=== PATIENT | female | born 1930 | race Caucasian/White ===

== ENCOUNTER 2016-07-10 10:49 | Observation (INO) | payer MEDICARE, OTHER ==
--- NOTE | ~2016-07-10 | HP ---
History And Physical [id number] [place]. [address] NAME: HALLE DE LA ROSA : 34 STATUS : ADM IN [facility]#: [id number] AGE: 85 ADM/REG DATE : 07/10/16 MR#: [id number] REPORT SERV DATE: 07/10/16 DICTATED BY: GALILEO JAVIER DATE: 07/10/16 REPORT STATUS : Draft TRANSCRIBED BY: MODRussell DATE: 07/10/16 DATE OF ADMISSION: 07/10/2016 HISTORY OF PRESENT ILLNESS: Ms. De La Rosa is an 85-year-old woman with a longstanding history of coronary artery disease. She underwent cardiac catheterization in 2014, which demonstrated normal left ventricular ejection fraction. She had proximal LAD and diagonal stenosis, for which medical management was recommended. She has a history of atrial fibrillation and sick sinus syndrome, status post pacemaker at [place]. She is normally on Pradaxa for stroke prevention. She had an episode today of feeling weak, somewhat presyncopal. She felt her heart beating a bit funny and had some precordial chest discomfort. She called 911, was brought to the [facility] Emergency Room by ambulance. She was noted to be in atrial fibrillation with mildly rapid ventricular rate. Initial troponin enzyme mildly elevated. The patient currently is on an IV amiodarone drip. She had some nonsustained ventricular tachycardia which has resolved. She is overall feeling better. PAST MEDICAL HISTORY: 1. Hypertension. 2. Hypercholesterolemia. 3. Sick sinus syndrome/atrial fibrillation, status post pacemaker. 4. Coronary artery disease. Diagonal and LAD stenosis treated medically. 5. Gastroesophageal reflux disease. ALLERGIES: INCLUDE PLAQUENIL AND SEPTRA. MEDICATIONS AT HOME: Include: Aspirin 81 mg daily, Pradaxa 75 mg twice a day, Lipitor 20 mg daily, Lasix 40 mg daily, Imdur 30 mg daily, Cozaar 25 mg daily, melatonin, metoprolol 100 mg twice a day, multivitamin, nitroglycerin sublingual, omega-3 fatty acid, and Prilosec. SOCIAL HISTORY: She does not smoke or drink alcohol. FAMILY HISTORY: There is no family history of early coronary artery disease. PHYSICAL EXAMINATION: VITAL SIGNS: Blood pressure 100/73; heart rate initially 140, now down to 70; respiratory rate of 16. GENERAL: Comfortable, in no acute distress. HEENT: Anicteric. No xanthelasma. Lips without cyanosis. NECK: No JVD. Carotids 2+ and symmetric. No carotid bruits. LUNGS: CTA bilaterally. No wheezes or rhonchi. No accessory muscle use. COR: Slightly irregular. Normal S1 and S2. No murmurs, rubs or gallops. ABD: Soft, nontender, nondistended. Normal bowel sounds. No abdominal bruits. EXT: No clubbing, cyanosis or edema 2+, and symmetric distal pulses. SKIN: Warm. Dry. No venous stasis changes. MS: No kyphosis. History And Physical [address] [place]. [address] NAME: HALLE DE LA ROSA : 34 STATUS : ADM IN [facility]#: [id number] AGE: 85 ADM/REG DATE : 07/10/16 MR#: [id number] REPORT SERV DATE: 07/10/16 DICTATED BY: GALILEO JAVIER DATE: 07/10/16 REPORT STATUS : Draft TRANSCRIBED BY: JUDITH DATE: 07/10/16 NEURO/PSYCH: Oriented x3. No anxiety or depression. LABORATORY STUDIES: White count of 12.3, hematocrit of 35. Creatinine of 1.1, potassium of 3.8. Troponin of 0.17. INR of 1.4. Chest x-ray: Chest x-ray shows moderate left pleural effusion with some consolidation. IMPRESSION: This is an 85-year-old woman presenting with symptoms of chest pain and atrial fibrillation with rapid ventricular rate. I have recommended IV amiodarone. We will plan IV heparin in the short term. We will hold her Pradaxa for now. We will cycle cardiac enzymes to rule out myocardial infarction. May need to consider echocardiogram or other testing pending her clinical course. GUANACO/JUDITH Galileo Javier M.D. / [id number] CC: Raciel Nunes DO
[~2016-07-10 10:49] MED LIST: ACET500CAP PO; ARICEPT10 PO; BIST PO; C25 PO; C5 PO; CEFT5 PO; CENTRUM TAB1 TAB PO; COREG3 PO; COUMADIN3 MG PO; COZAAR100 MG PO; DEMA10T PO; DSS PO; FISH OIL1200 MG PO; FOLIC ACID400 MC1 PO; FOS10; FOSAMAX70 MG PO; IMDUR60 PO; IRON325 MG PO; ISMO20 MG PO; LIPITOR10 PO; LIPITOR20 PO; LOVENOX40 SC; MAXIMUM D3 PO; MELA3 PO; MIRALAXPKT PO; MULTIVITAMI1 PO; MYLUD PO; NAMENXR28 PO; NATURA2 OPH; NITROSTAT0.4 MG SL; NORV10 PO; P1 PO; PCET PO; PRILO PO; PRILOSEC40 MG PO; RAN500 PO; SPIRO25 PO; TEARS NATURA OPH; TRIAMCINOLON0.13 EX; TYLENOL ARTH650 MG PO; ULTRAM50 PO; VITAMIN B-121000 MC1 SL; VITAMIN D31000 UNIT PO; X25 PO; [UNRECOGNIZED DRUG - CODE] PO
[2016-07-10 11:26] LABS: BASOPHILS 0.6 %; BASOPHILS ABSOLUTE 0.07 10/3/uL (0.0-0.16); EOSINOPHILS ABSOLUTE 0.24 10/3/uL (0.0-0.53); IMMATURE GRANULOCYTES 0.2 %; IMMATURE GRANULOCYTES ABSOLUTE 0.03 10/3/uL (0.0-0.11); LYMPHOCYTES 12.9 %; LYMPHOCYTES ABSOLUTE 1.58 10/3/uL (0.67-4.30); MEAN CORPUS HGB CONC 34.1 g/dL (32.0-36.0); MEAN CORPUSCULAR HEMOGLOB 29.5 pg (26.0-34.0); MEAN PLATELET VOLUME 8.8 fL (9.2-13.0); MONOCYTES 8.7 %; MONOCYTES ABSOLUTE 1.07 10/3/uL (0.21-1.20); NEUTROPHILS 75.6 %; NEUTROPHILS ABSOLUTE 9.27 10/3/uL (2.02-8.40); PLATELET COUNT 397 10/3/uL (150-400); RBC DISTRIBUTION WIDTH 14.7 % (12.0-16.0)
[2016-07-10 11:28] LABS: HEMATOCRIT 35.5 % (36.0-48.0); HEMOGLOBIN 12.1 g/dL (12.0-16.0); MANUAL DIFF NO %; MEAN CORPUSCULAR VOLUME 86.6 fL (80-100); WHITE BLOOD CELLS 12.3 10/3/uL (4.5-10.5)
[2016-07-10] MEDS ORDERED: CENTRUM PO ×2 (11:34→12:28)
[2016-07-10] MEDS ORDERED: L20 PO (11:34)
[2016-07-10] MEDS ORDERED: FOSAMAX70 MG PO (11:34)
[2016-07-10] MEDS ORDERED: FERROUS SULF325 M1 PO (11:34)
[2016-07-10] MEDS ORDERED: LOP25 PO (11:35)
[2016-07-10] MEDS ORDERED: ISORDIL20 PO (11:35)
[2016-07-10] MEDS ORDERED: P1 PO (11:35)
[2016-07-10] MEDS ORDERED: KLOR-CON M1010 MEQ PO (11:35)
[2016-07-10] MEDS ORDERED: DEMA10T PO (11:36)
[2016-07-10] MEDS ORDERED: RANEXA1000 MG PO (11:36)
[2016-07-10] MEDS ORDERED: PRADAXA150 MG PO (11:36)
[2016-07-10 11:40] LABS: INTERNATIONAL NORMAL RATI 1.4 UNITS (-); PROTIME (NOT ORD) 17.1 SEC (12.0-14.5)
[2016-07-10 11:41] LABS: PARTIAL THROMBO TIME 62.1 SEC (22.5-37.2)
[2016-07-10 11:50] LABS: BUN (BLOOD UREA NITROGEN) 37 MG/DL (6-23); CALCIUM, SERUM 9.8 MG/DL (8.5-10.4); CHEST PAIN PROFILE TAT 0 Hrs 26 Mins; CHLORIDE, SERUM 105 MMOL/L (96-112); CO2 (CARBON DIOXIDE) 23 MMOL/L (24-34); CREATININE 1.15 MG/DL (0.55-1.02); GFR AFRICAN AMERICAN 51 ML/MIN (>=60); GFR NON AFRICAN AMERICAN 44 ML/MIN (>=60); GLUCOSE, SERUM 100 MG/DL (60-99); POTASSIUM, SERUM 3.8 MMOL/L (3.5-5.3); SODIUM, SERUM 139 MMOL/L (135-148); TROPONIN I 0.17 NG/ML (<0.05); ULTRASENSITIVE TSH 0.762 MCIU/ML (0.358-3.740)
[2016-07-10] MEDS ORDERED: NITROSTAT0.4 MG SL (12:24)
[2016-07-10] MEDS ORDERED: PRILO PO (12:28)
[2016-07-10] MEDS ORDERED: PRADAXA75 MG PO (12:28)
[2016-07-10] MEDS ORDERED: FLORASTOR250 MG PO (12:28)
[2016-07-10] MEDS ORDERED: HALF81 PO (12:29)
[2016-07-10] MEDS ORDERED: FISH-EPA1000 MG PO (12:29)
[2016-07-10] MEDS ORDERED: COZ25 PO (12:29)
[2016-07-10] MEDS ORDERED: IMDUR30 PO (12:30)
[2016-07-10] MEDS ORDERED: L40 PO (12:30)
[2016-07-10] MEDS ORDERED: LIPITOR20 PO (12:30)
[2016-07-10] MEDS ORDERED: MELATONIN5 M1 PO (12:30)
[2016-07-10] MEDS ORDERED: LOP100 PO (12:31)
[2016-07-10 17:11] LABS: BASOPHILS 0.5 %; BASOPHILS ABSOLUTE 0.06 10/3/uL (0.0-0.16); EOSINOPHILS 1.4 %; EOSINOPHILS ABSOLUTE 0.16 10/3/uL (0.0-0.53); HEMATOCRIT 36.1 % (36.0-48.0); IMMATURE GRANULOCYTES 0.3 %; IMMATURE GRANULOCYTES ABSOLUTE 0.04 10/3/uL (0.0-0.11); LYMPHOCYTES 20.3 %; LYMPHOCYTES ABSOLUTE 2.41 10/3/uL (0.67-4.30); MANUAL DIFF NO %; MEAN CORPUS HGB CONC 33.2 g/dL (32.0-36.0); MEAN CORPUSCULAR HEMOGLOB 29.3 pg (26.0-34.0); MEAN CORPUSCULAR VOLUME 88.3 fL (80-100); MEAN PLATELET VOLUME 9.4 fL (9.2-13.0); MONOCYTES 7.9 %; MONOCYTES ABSOLUTE 0.94 10/3/uL (0.21-1.20); NEUTROPHILS 69.6 %; NEUTROPHILS ABSOLUTE 8.24 10/3/uL (2.02-8.40); PLATELET COUNT 359 10/3/uL (150-400); RBC DISTRIBUTION WIDTH 14.8 % (12.0-16.0); RED CELL COUNT 4.09 10/6/uL (4.0-5.6); WHITE BLOOD CELLS 11.9 10/3/uL (4.5-10.5)
[2016-07-10 17:25] LABS: CALCIUM, SERUM 9.6 MG/DL (8.5-10.4); CHLORIDE, SERUM 107 MMOL/L (96-112); CO2 (CARBON DIOXIDE) 22 MMOL/L (24-34); CREATININE 1.06 MG/DL (0.55-1.02); GFR AFRICAN AMERICAN 56 ML/MIN (>=60); GFR NON AFRICAN AMERICAN 49 ML/MIN (>=60); GLUCOSE, SERUM 103 MG/DL (60-99); INTERNATIONAL NORMAL RATI 1.4 UNITS (-); PROTIME (NOT ORD) 17.1 SEC (12.0-14.5); SODIUM, SERUM 138 MMOL/L (135-148)
[2016-07-10 17:26] LABS: BUN (BLOOD UREA NITROGEN) 32 MG/DL (6-23); PARTIAL THROMBO TIME 62.6 SEC (22.5-37.2); TROPONIN I 0.26 NG/ML (<0.05)
[2016-07-11 05:43] LABS: BASOPHILS 0.7 %; BASOPHILS ABSOLUTE 0.09 10/3/uL (0.0-0.16); EOSINOPHILS 3.8 %; EOSINOPHILS ABSOLUTE 0.47 10/3/uL (0.0-0.53); HEMATOCRIT 34.9 % (36.0-48.0); HEMOGLOBIN 11.7 g/dL (12.0-16.0); IMMATURE GRANULOCYTES 0.3 %; IMMATURE GRANULOCYTES ABSOLUTE 0.04 10/3/uL (0.0-0.11); LYMPHOCYTES 22.5 %; LYMPHOCYTES ABSOLUTE 2.76 10/3/uL (0.67-4.30); MEAN CORPUS HGB CONC 33.5 g/dL (32.0-36.0); MEAN CORPUSCULAR HEMOGLOB 29.4 pg (26.0-34.0); MEAN CORPUSCULAR VOLUME 87.7 fL (80-100); MEAN PLATELET VOLUME 8.8 fL (9.2-13.0); MONOCYTES 7.8 %; MONOCYTES ABSOLUTE 0.96 10/3/uL (0.21-1.20); NEUTROPHILS 64.9 %; NEUTROPHILS ABSOLUTE 7.93 10/3/uL (2.02-8.40); PLATELET COUNT 378 10/3/uL (150-400); RBC DISTRIBUTION WIDTH 14.9 % (12.0-16.0); RED CELL COUNT 3.98 10/6/uL (4.0-5.6); WHITE BLOOD CELLS 12.3 10/3/uL (4.5-10.5)
[2016-07-11 05:48] LABS: MANUAL DIFF NO %
[2016-07-11 06:05] LABS: CHOL/HDL RATIO(NOT ORDER) 3.8 (0-5)
[2016-07-11] MEDS ORDERED: CORDARONE PO (09:13)
== END 2016-07-11 11:48 | disposition home or self-care (01) ==
LOC: ER 10:49 → 7NO 14:16
PROVIDERS: Hospitalist; Internal Medicine Cardiovascular Disease
DX: I48.91 Unspecified atrial fibrillation (principal); I25.10 Atherosclerotic heart disease of native coronary artery without angina pectoris; I10 Essential (primary) hypertension; E78.00 Pure hypercholesterolemia, unspecified; K21.9 Gastro-esophageal reflux disease without esophagitis; I25.2 Old myocardial infarction; Z95.0 Presence of cardiac pacemaker; Z88.8 Allergy status to other drugs, medicaments and biological substances; Z79.82 Long term (current) use of aspirin; Z79.899 Other long term (current) drug therapy; Z90.89 Acquired absence of other organs; Z90.49 Acquired absence of other specified parts of digestive tract; Z98.41 Cataract extraction status, right eye; Z98.42 Cataract extraction status, left eye; Z98.890 Other specified postprocedural states; Z86.73 Personal history of transient ischemic attack (TIA), and cerebral infarction without residual deficits
CPT/HCPCS: 71010; 80048; 80061; 83735; 84443; 84460; 84484; 85025; 85610; 85730; 93005; 96365; 96368; 96376; 99291; A9270-GY; G0378; J0282